=== PATIENT | male | born 1995 | race Caucasian/White ===

== ENCOUNTER 2017-03-06 18:29 | Emergency (ER) | payer OTHER, MEDICAID ==
[2017-03-06 18:41] VITALS: BP 158/84
[2017-03-06] MEDS ORDERED: Acetaminophen 500 MG Tab PO ONE (19:07)
--- NOTE | 2017-03-06 19:16 | EDM.PDOC ---
ED HPI GENERAL MEDICAL PROBLEM - General Chief Complaint: Abdominal Pain Stated Complaint: R ABDOMINAL PAIN Time Seen by Provider: 03/06/17 19:00 Source of Information: Reports: Patient, Old Records, RN History Limitations: Reports: No Limitations - History of Present Illness INITIAL COMMENTS - FREE TEXT/NARRATIVE: 21 yo male here with RLQ abdominal pain that began yesterday. Was seen in the clinic today and had a normal CBC and UA. Pain is a little worse tonight so comes here for eval. Is taking nothing for the pain. Has had a dry cough lately. Stools loose yesterday, normal today. No fever today or vomiting. No previous surgeries. Onset: Other (yesterday) Onset Date: 03/05/17 Duration: Hour(s):, Getting Worse, Intermittent Location: Reports: Abdomen Quality: Reports: Ache Severity: Moderate Improves with: Reports: Rest Worsens with: Reports: Movement Context: Reports: Other (Recent viral enteritis) Associated Symptoms: Reports: Cough. Denies: Fever/Chills, Nausea/Vomiting Treatments ICT ANALYST: Reports: Other (see below) (none) epigastric Pain Score (Numeric/FACES): 4 - Related Data Allergies Allergy/AdvReac Type Severity Reaction Status Date / Time No Known Allergies Allergy Verified 03/06/17 18:44 Home Meds: Home Meds Levothyroxine 225 mcg PO DAILY 06/21/14 [History] Ibuprofen 200 mg PO Q4H PRN 12/27/14 [History] Past Medical History HEENT History: Reports: Impaired Vision Cardiovascular History: Reports: None Respiratory History: Reports: None Gastrointestinal History: Reports: None Genitourinary History: Reports: None Musculoskeletal History: Reports: Fracture Other Musculoskeletal History: right ankle-no pins Neurological History: Reports: None Psychiatric History: Reports: None Endocrine/Metabolic History: Reports: None Hematologic History: Reports: None Immunologic History: Reports: None Oncologic (Cancer) History: Reports: None Dermatologic History: Reports: None - Infectious Disease History Infectious Disease History: Reports: None - Past Surgical History Head Surgeries/Procedures: Reports: None HEENT Surgical History: Reports: Oral Surgery Endocrine Surgical History: Reports: None Neurological Surgical History: Reports: None Musculoskeletal Surgical History: Reports: None Oncologic Surgical History: Reports: None Dermatological Surgical History: Reports: None Social & Family History - Family History Family Medical History: Noncontributory - Tobacco Use Smoking Status *Q: Never Smoker Second Hand Smoke Exposure: No - Caffeine Use Caffeine Use: Reports: Coffee, Energy Drinks, Soda - Alcohol Use Days Per Week of Alcohol Use: 0 - Recreational Drug Use Recreational Drug Use: No ED ROS GENERAL - Review of Systems Review Of Systems: See Below Constitutional: Reports: No Symptoms HEENT: Reports: No Symptoms Respiratory: Reports: Cough (dry) Cardiovascular: Reports: No Symptoms Endocrine: Reports: No Symptoms GI/Abdominal: Reports: Abdominal Pain, Diarrhea (yesterday, now gone). Denies: Black Stool, Bloody Stool, Constipation, Decreased Appetite, Distension, Melena , Nausea, Vomiting : Reports: No Symptoms Musculoskeletal: Reports: No Symptoms Skin: Reports: No Symptoms Neurological: Reports: No Symptoms Psychiatric: Reports: No Symptoms ED EXAM, GI/ABD - Physical Exam Exam: See Below Exam Limited By: No Limitations General Appearance: Alert, WD/WN, No Apparent Distress Eyes: Bilateral: Normal Appearance Ears: Normal External Exam, Normal Canal, Hearing Grossly Normal Nose: Normal Inspection, Normal Mucosa, No Blood Throat/Mouth: Normal Inspection, Normal Lips, Normal Oropharynx, Normal Voice, No Airway Compromise Head: Atraumatic, Normocephalic Neck: Normal Inspection, Supple, Non-Tender Respiratory/Chest: No Respiratory Distress, Lungs Clear, Normal Breath Sounds, No Accessory Muscle Use Cardiovascular: Regular Rate, Rhythm, No Edema GI/Abdominal Exam: Normal Bowel Sounds, Soft, No Distention, Tender (RLQ without rebound or guarding). No: Guarding, Rigid, Rebound Back Exam: Normal Inspection. No: CVA Tenderness (R), CVA Tenderness (L) Extremities: Normal Inspection, Normal Range of Motion, Non-Tender, No Pedal Edema Neurological: Alert, Oriented, CN II-XII Intact, Normal Cognition Psychiatric: Normal Affect, Normal Mood Skin Exam: Warm, Dry, Intact, Normal Color, No Rash Lymphatic: No Adenopathy Course - Vital Signs Last Recorded V/S: Last Vital Signs Temp 37.0 C 03/06/17 18:47 Pulse 105 H 03/06/17 18:47 Resp 16 03/06/17 18:47 BP 158/84 H 03/06/17 18:47 Pulse Ox 97 03/06/17 18:47 - Orders/Labs/Meds Labs: Laboratory Tests 03/06/17 Range/Units 19:18 WBC 6.1 (4.5-11.0) K/uL RBC 5.17 (4.30-5.90) M/uL Hgb 14.7 (12.0-15.0) g/dL Hct 43.0 (40.0-54.0) % MCV 83 (80-98) fL MCH 28 (27-31) pg MCHC 34 (32-36) % Plt Count 229 (150-400) K/uL Meds: Medications Discontinued Medications Generic Name Dose Route Start Last Admin Trade Name Joseq PRN Reason Stop Dose Admin Acetaminophen 1,000 mg 03/06/17 19:07 03/06/17 19:22 Tylenol Extra Strength PO 03/06/17 19:08 1,000 mg ONETIME ONE Administration Departure - Departure Time of Disposition: 19:35 Disposition: Home, Self-Care 01 Condition: Good Clinical Impression: Abdominal pain Qualifiers: Abdominal location: right lower quadrant Qualified Code(s): R10.31 - Right lower quadrant pain - Discharge Information Referrals: Aden Lima MD [Primary Care Provider] - Forms: ED Department Discharge
== END 2017-03-06 19:54 | disposition home or self-care (01) ==
LOC: JP.ED 18:29
DX: R10.31 Right lower quadrant pain (principal); R10.13 Epigastric pain; Z79.899 Other long term (current) drug therapy
CPT/HCPCS: 36415; 85027; 99284; A9270

== ENCOUNTER 2017-10-01 19:10 | Emergency (ER) | payer OTHER, MEDICAID ==
[2017-10-01 19:30] VITALS: BP 130/89
--- NOTE | 2017-10-01 20:00 | EDM.PDOC ---
ED HPI GENERAL MEDICAL PROBLEM - General Chief Complaint: Lower Extremity Injury/Pain Stated Complaint: RT FOOT ISSUES Time Seen by Provider: 10/01/17 19:35 Source of Information: Reports: Patient, RN Notes Reviewed History Limitations: Reports: No Limitations - History of Present Illness INITIAL COMMENTS - FREE TEXT/NARRATIVE: 22-year-old male underwent right foot arch reconstruction by Dr. Sheridan, orthopedic/podiatry at [place] on September 21, 10 days ago This involved muscle surgery as well as bony reconstruction. Severe flat feet with significant pain in the feet and knees ankl limiting his ability to work for several years. Lipped using crutches this evening and has increased the pain in the right calf. Does havA short leg fiberglass cast on. Took 2 oxycodone prior to arrival and pain is a little better now Right Lower Posterior Leg Pain Score (Numeric/FACES): 5 - Related Data Allergies Allergy/AdvReac Type Severity Reaction Status Date / Time No Known Allergies Allergy Verified 03/06/17 18:44 Home Meds: Home Meds Levothyroxine 225 mcg PO DAILY 06/21/14 [History] Ibuprofen 200 mg PO Q4H PRN 12/27/14 [History] Past Medical History HEENT History: Reports: Impaired Vision Cardiovascular History: Reports: None Respiratory History: Reports: None Gastrointestinal History: Reports: None Genitourinary History: Reports: None Musculoskeletal History: Reports: Fracture Other Musculoskeletal History: right ankle-no pins Neurological History: Reports: None Psychiatric History: Reports: None Endocrine/Metabolic History: Reports: None, Hypothyroidism Hematologic History: Reports: None Immunologic History: Reports: None Oncologic (Cancer) History: Reports: None Dermatologic History: Reports: None - Infectious Disease History Infectious Disease History: Reports: None - Past Surgical History Head Surgeries/Procedures: Reports: None HEENT Surgical History: Reports: Oral Surgery Endocrine Surgical History: Reports: None Neurological Surgical History: Reports: None Musculoskeletal Surgical History: Reports: None, Other (See Below) Other Musculoskeletal Surgeries/Procedures:: had right instep rebuilt Oncologic Surgical History: Reports: None Dermatological Surgical History: Reports: None Social & Family History - Family History Family Medical History: Noncontributory - Tobacco Use Smoking Status *Q: Never Smoker - Caffeine Use Caffeine Use: Reports: None - Recreational Drug Use Recreational Drug Use: No Review of Systems - Review of Systems Review Of Systems: See Below Constitutional: Reports: No Symptoms Mouth/Throat: Reports: No Symptoms Respiratory: Reports: No Symptoms GI/Abdominal: Reports: No Symptoms Musculoskeletal: Reports: Leg Pain, Foot Pain Skin: Reports: No Symptoms ED EXAM, GENERAL - Physical Exam Exam: See Below Exam Limited By: No Limitations General Appearance: Alert, Mild Distress, Other (Vital signs within normalNo difficulty speaking or breathing) Neck: Normal Inspection Respiratory/Chest: No Respiratory Distress Cardiovascular: Normal Peripheral Pulses Extremities: Other (Cast on the right lower legMinimal swelling of the toes without color change, normal capillary refill, normal movements within the limits of the cast) Neurological: Alert, Oriented, No Motor/Sensory Deficits Psychiatric: Flat Affect Skin Exam: Warm, Dry Course - Vital Signs Last Recorded V/S: Last Vital Signs Temp 37.3 C 10/01/17 19:24 Pulse 91 10/01/17 19:24 Resp 16 10/01/17 19:24 BP 130/89 10/01/17 19:24 Pulse Ox 97 10/01/17 19:24 - Orders/Labs/Meds Orders: Active Orders 24 hr Category Date Time Status Foot 2V Rt [CR] Stat Exams 10/01/17 19:45 Taken Tibia Fibula Rt [CR] Stat Exams 10/01/17 19:45 Taken - Re-Assessments/Exams Free Text/Narrative Re-Assessment/Exam: 10/01/17 20:01 22-year-old male 10 days post right arch reconstruction with increased pain after slipping using his crutches tonight. 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 Examination tonight is reassuring and x-rays do not show any displacement. Keep your leg elevated tonight Take pain medication as needed See your surgeon tomorrow as arranged - My Orders Last 24 Hours: My Active Orders 10/01/17 19:45 Foot 2V Rt [CR] Stat Tibia Fibula Rt [CR] Stat - Assessment/Plan Last 24 Hours: My Active Orders 10/01/17 19:45 Foot 2V Rt [CR] Stat Tibia Fibula Rt [CR] Stat
--- NOTE | 2017-10-02 08:26 | CR ---
Tibia Fibula Rt CLINICAL HISTORY: Recent surgery, recent injury FINDINGS: Patient has had the previous calcaneal surgery. There is a cast in place. The tibia and fib jerome appear intact. Impression: Previous calcaneal surgery with cast in place Negative study of the tibia and fibula
--- NOTE | 2017-10-02 08:29 | CR ---
FOOT RIGHT 3 views CLINICAL HISTORY:Foot surgery, recent injury FINDINGS:There is a cast in place. There is a fixation screw through the posterior mid calcaneus thro ugh the fracture line which is likely surgical. There is also irregular lucency through the anterior calcaneus. The there is some asymmetry the calcaneocuboid joint. Prior films are not available. The t here is a fixation screw in the navicular. Impression: Previous hindfoot surgery with fixation screws in the calcaneus and navicular. There is a fracture line through the anterior calcaneus which may also be related to surgery. Clinical correlat ion necessary . Prior images would be helpful
== END 2017-10-01 20:21 | disposition home or self-care (01) ==
LOC: JP.ED 19:10
DX: G89.18 Other acute postprocedural pain (principal); E03.9 Hypothyroidism, unspecified; Z79.899 Other long term (current) drug therapy
CPT/HCPCS: 73590-26-RT; 73590-RT; 73620-26-RT; 73620-RT; 99284